=== PATIENT | male | born 1980 | race Caucasian/White ===

== ENCOUNTER 2017-02-13 01:42 | Inpatient (IN) | payer SELFPAY ==
--- NOTE | 2017-02-13 02:03 | ER Document Report ---
ED General - General Chief Complaint: Chest Pain Stated Complaint: CHEST PAIN Time Seen by Provider: 02/13/17 02:02 Notes: Patient is a pleasant 37-year-old male who presents with complaints of chest pain and shortness of breath. This started right after he injected himself with methamphetamine as. He also took a Suboxone strip and smoke marijuana. Even though the symptoms occurred after doing this he says he does not think it is related to the drugs because he has done drugs me times in the past and not had the severe chest pain or shortness of breath. He also had a sensation of blood rushing into his head. Currently does not have a headache. His chest pain is starting to come down. He is very anxious. He does have history of panic attacks but says this feels different. He has no history of coronary disease. No history of cardiomyopathy. He takes no medications on a regular basis. He has no other complaints at this time. TRAVEL OUTSIDE OF THE [place] IN LAST 30 DAYS: No - Related Data Allergies/Adverse Reactions: No Known Allergies Allergy (Verified 05/15/14 06:14) Past Medical History - Social History Smoking Status: Current Some Day Smoker Frequency of alcohol use: Occasional Drug Abuse: Marijuana, Methamphetamine, Prescription drugs Family History: Reviewed & Not Pertinent Past Surgical History: Reports: Hx Orthopedic Surgery - pelvic - Immunizations Immunizations up to date: Yes Hx Diphtheria, Pertussis, Tetanus Vaccination: Yes Review of Systems - Review of Systems Notes: My Normal Review Basic REVIEW OF SYSTEMS: CONSTITUTIONAL : Denies fever, chills, or sweats. Denies recent illness. EENT: Denies eye, ear, throat, or mouth pain or symptoms. Denies nasal or sinus congestion. CARDIOVASCULAR: Had chest pain RESPIRATORY: Difficulty breathing. GASTROINTESTINAL: Denies abdominal pain. Denies nausea, vomiting, or diarrhea. Denies constipation. Last BM: MUSCULOSKELETAL: Denies neck or back pain or joint pain or swelling. SKIN: Denies rash or skin lesions.. NEUROLOGICAL: Denies altered mental status or loss of consciousness. Denies headache. Denies weakness or paralysis or loss of use of either side. Denies problems with gait or speech. Denies sensory or motor loss. ALL OTHER SYSTEMS REVIEWED AND NEGATIVE. Physical Exam - Vital signs Vitals: Resp Pulse Ox 21 H 95 02/13/17 02:08 02/13/17 02:08 - Notes Notes: General Appearance: Well nourished, alert, cooperative, no acute distress, no obvious discomfort. Vitals: reviewed, See vital signs table. Head: no swelling or tenderness to the head Eyes: PERRL, EOMI, Conjuctiva clear Mouth: No decreasd moisture Lungs: No wheezing, No rales, No rhonci, No accessory muscle use, good air exchange bilaterally. Heart: Normal rate, Regular rythm, No murmur, no rub Chest wall pain: No pain to palpation of the chest wall. Abdomen: Normal BS, soft, No rigidity, No abdominal tenderness, No guarding, no rebound, no abdominal masses, no organomegaly Extremities: strength 5/5 in all extremities, good pulses in all extremities, no swelling or tenderness in the extremities, no edema. Skin: warm, dry, appropriate color, no rash Neuro: speech clear, oriented x 3, normal affect, responds appropriately to questions. Course - Re-evaluation Re-evalutation: 02/13/17 04:20 I reevaluate the patient. He is doing some better. He tells me that he still has some chest pain that is pleuritic that is over the left lower portion of his chest. He says he does not feel near as bad as initially was started. He now tells me that his symptoms did not start until 4-5 hours after he injected the drugs. He says that is why he is not sure that this could be related to the joints. Being that she is an IV drug abuser did have sudden onset of chest pain dyspnea 4-5 hours after drug abuse I will obtain a CTA as he is at risk for pulmonary emboli. If this is negative then I suspect this is still probably related to his IV drug abuse and anxiety. 02/13/17 05:54 CTA of the chest is positive for multiple small pulmonary emboli. I will give the patient a dose of Lovenox. His vital signs are stable at this time. I am waiting to hear back from the hospitalist so I can have the patient admitted. 02/13/17 07:34 On exam patient is normotensive and satting around 92% on room air at rest. His heart rate is in the 90s at rest. When he gets up and moves around his oxygen saturation dips down to around 87% and his heart rate goes into the 1 teens. I initially spoke with Dr. Mcnamara who had to leave because he was called to a cardiac arrest on the floor. I then spoke with Dr. Johnson , hospitalist, who agrees to admit the patient. Dictation of this chart was performed using voice recognition software; therefore, there may be some unintended grammatical errors. 02/13/17 07:34 - Vital Signs Vital signs: Temp Pulse Resp BP Pulse Ox 98.5 F 15 125/78 95 02/13/17 07:33 02/13/17 07:15 02/13/17 07:15 02/13/17 07:15 - Laboratory Result Diagrams: 02/13/17 03:13 02/13/17 03:13 Laboratory results interpreted by me: 02/13/17 02/13/17 03:13 03:13 WBC 14.2 H MCV 99 H Seg Neutrophils % 87.2 H Lymphocytes % 7.5 L Absolute Neutrophils 12.4 H BUN 21 H Glucose 113 H - EKG Interpretation by Me Additional EKG results interpreted by me: 02/13/17 02:02 EKG is reviewed and interpreted by me. EKG shows sinus tachycardia with rate of [address] segment elevation or depression. No ischemic T-wave inversions. ID interval, QRS duration, QTc intervals are within normal range. Old EKG for comparison is from May 15, 2014. Discharge - Discharge Clinical Impression: Pulmonary emboli Qualifiers: Pulmonary embolism type: other Chronicity: acute Acute cor pulmonale presence: without acute cor pulmonale Qualified Code(s): I26.99 - Other pulmonary embolism without acute cor pulmonale Condition: Stable
[2017-02-13] MEDS ORDERED: LORAZEPAM INJ 2 MG/1 ML VIAL IV ONE (03:14)
--- NOTE | 2017-02-13 03:20 | RADIOLOGY REPORT (SQ) ---
EXAM DESCRIPTION: CHEST SINGLE VIEW COMPLETED DATE/TIME: 02/13/2017 3:03 am REASON FOR STUDY: chest pain COMPARISON: CR and CT, 05/15/2014. EXAM PARAMETERS: NUMBER OF VIEWS: One view. TECHNIQUE: Single frontal radiographic view of the chest acquired. RADIATION DOSE: NA LIMITATIONS: None. FINDINGS: LUNGS AND PLEURA: No opacities, masses or pneumothorax. No pleural effusion. MEDIASTINUM AND HILAR STRUCTURES: No masses. Contour normal. HEART AND VASCULAR STRUCTURES: Heart normal in size. Normal vasculature. BONES: No acute findings. Mild osteoarthritis of of the left glenohumeral joint HARDWARE: None in the chest. OTHER: No other significant finding. IMPRESSION: NO ACUTE RADIOGRAPHIC FINDING IN THE CHEST. TECHNICAL DOCUMENTATION: JOB ID: [id number]
[2017-02-13 03:29] LABS: ABSOLUTE LYMPHOCYTES (AUTO) 1.1 10^3/uL (0.5-4.7); ABSOLUTE MONOCYTES (AUTO) 0.7 10^3/uL (0.1-1.4); ABSOLUTE NEUT (AUTO) 12.4 10^3/uL (1.7-8.2); BASOPHILS % (AUTO) 0.3 % (0-2); EOSINOPHILS % (AUTO) 0.2 % (0-6); HEMATOCRIT 44.4 % (37.9-51.0); HEMOGLOBIN 14.9 g/dL (13.5-17.0); HGB HCT DIFFERENCE 0.3; LYMPHOCYTES % (AUTO) 7.5 % (13-45); MEAN CORPUSCULAR HEMOGLOBIN 33.3 pg (27.0-33.4); MEAN CORPUSCULAR HGB CONC 33.6 g/dL (32.0-36.0); MEAN CORPUSCULAR VOLUME 99 fl (80-97); MONOCYTES % (AUTO) 4.8 % (3-13); RED BLOOD COUNT 4.49 10^6/uL (4.35-5.55); RED CELL DISTRIBUTION WIDTH 13.1 % (11.5-14.0); SEGMENTED NEUTROPHILS % (AUTO) 87.2 % (42-78); WHITE BLOOD COUNT 14.2 10^3/uL (4.0-10.5)
[2017-02-13 03:39] LABS: ALANINE AMINOTRANSFERASE 32 U/L (21-72); ALBUMIN 4.9 g/dL (3.5-5.0); ALKALINE PHOSPHATASE 88 U/L (38-126); ANION GAP 14 (5-19); ASPARTATE AMINO TRANSFERASE 30 U/L (17-59); BILIRUBIN,DIRECT 0.4 mg/dL (0.0-0.4); BILIRUBIN,TOTAL 0.5 mg/dL (0.2-1.3); BLOOD UREA NITROGEN 21 mg/dL (7-20); CALCIUM 10.2 mg/dL (8.4-10.2); CARBON DIOXIDE 25 mmol/L (22-30); CHLORIDE 101 mmol/L (98-107); CREATINE KINASE 122 U/L (55-170); CREATININE RESULT 0.97 mg/dL (0.52-1.25); GLUCOSE 113 mg/dL (75-110); POTASSIUM 4.4 mmol/L (3.6-5.0); SODIUM 140.1 mmol/L (137-145)
[2017-02-13 03:52] LABS: CREATINE KINASE MB 1.29 ng/mL (<4.55); TROPONIN I < 0.012 ng/mL
[2017-02-13 04:00] LABS: URINE BARBITURATES SCREEN NEGATIVE; URINE METHADONE SCREEN NEGATIVE; URINE OPIATES LOW NEGATIVE; URINE PHENCYCLIDINE SCREEN NEGATIVE
[2017-02-13] MEDS ORDERED: NORMAL SALINE 1000 ML 1,000 ML IV ONE (04:20)
[2017-02-13] MEDS ORDERED: ENOXAPARIN SODIUM INJ 80 MG/0.8 ML DISP.SYRIN SUBCUT SCH ×3 (05:45→22:00)
--- NOTE | 2017-02-13 05:48 | RADIOLOGY REPORT (SQ) ---
EXAM DESCRIPTION: CTA CHEST COMPLETED DATE/TIME: 02/13/2017 5:18 am REASON FOR STUDY: chest pain, tachycardia COMPARISON: None. TECHNIQUE: CT scan of the chest performed using helical scanning technique with dynamic intravenous contrast injection. Images reviewed with lung, soft tissue and bone windows. Reconstructed coronal and sagittal MPR images reviewed. Additional 3 dimensional post-processing performed to develop Maximal Intensity Projection images (MS P). All images stored on PACS. All CT scanners at this facility use dose modulation, iterative reconstruction, and/or weight based d osing when appropriate to reduce radiation dose to as low as reasonably achievable (ALARA). [facility]: Dose Right [facility]: CareDose [facility]: Dose Right [facility]: Teradose 4D [facility]: Riidr CONTRAST TYPE AND DOSE: contrast/concentration: Isovue 370.00 mg/ml; Total Contrast Delivered: 100.0 ml; Total Saline Delivered: 65.0 ml RENAL FUNCTION: None required. The patient is less than 50 years old. RADIATION DOSE: Up-to-date CT equipment and radiation dose reduction techniques were employed. CTDIv ol: 17.2 mGy. DLP: 609 mGy-cm. . LIMITATIONS: None. FINDINGS: LUNGS AND PLEURA: No masses, infiltrates, pneumothorax. No pleural effusions, calcificati ons. AORTA AND GREAT VESSELS: No aneurysm or dissection. HEART: No pericardial effusion. Moderate right ventricular strain. PULMONARY ARTERIES: Scattered pulmonary emboli with lower lobe predominance in tertiary pulmonary art erial vessels with the largest in the right interlobar artery, near occlusive and elongated. HILAR AND MEDIASTINAL STRUCTURES: No identified masses or abnormal nodes. HARDWARE: None in the chest. UPPER ABDOMEN: 5.6 cm likely benign partially imaged cyst of the right kidney. Limited exam. THYROID AND OTHER SOFT TISSUES: No masses. No adenopathy. BONES: No acute or significant finding. 3D MIPS: Confirm above findings. OTHER: No other significant finding. IMPRESSION: Bilateral pulmonary emboli. COMMENT: This report was called to NELLA PEREZ DO at05:39 on 02/13/2017. TECHNICAL DOCUMENTATION: JOB ID: [id number] Quality ID # [id number]: Final reports with documentation of one or more dose reduction techniques (e.g., Au tomated exposure control, adjustment of the mA and/or kV according to patient size, use of iterative reconstruction technique) 2010 [employer]- All Rights Reserved
[2017-02-13] MEDS ORDERED: ENOXAPARIN SODIUM INJ 80 MG/0.8 ML DISP.SYRIN SUBCUT ONE (06:30)
[2017-02-13 06:55] LABS: PARTIAL THROMBOPLASTIN TIME 31.4 SEC (23.5-35.8)
[2017-02-13] MEDS ORDERED: ONDANSETRON HCL INJ/PF 4 MG/2 ML SDV IV PRN (08:02)
[2017-02-13] MEDS ORDERED: ACETAMINOPHEN 325 MG TABLET PO PRN (08:02)
[2017-02-13] MEDS ORDERED: MAG HYDROX/AL HYDROX/SIMETH SUSP 30 ML UDCUP PO PRN (08:02)
[2017-02-13] MEDS ORDERED: LORAZEPAM 1 MG TABLET PO PRN (08:05)
[2017-02-13] MEDS ORDERED: VANCOMYCIN HCL 0 MG in DEXTROSE 5%-WATER 250 ML IV NR (08:15)
[2017-02-13] MEDS ORDERED: GENTAMICIN SULFATE 0 MG in DEXTROSE 5%-WATER 100 ML IV NR (08:15)
[2017-02-13] MEDS ORDERED: VANCOMYCIN HCL 1,000 MG in DEXTROSE 5%-WATER 250 ML IV ONE (09:00)
--- NOTE | 2017-02-13 09:22 | HISTORY AND PHYSICAL E ---
History and Physical NAME: MAANUEL COATES : 1980 AGE: 37Y ADMITTED: 02/13/2017 ROOM: ED07 CHIEF COMPLAINT: Shortness of breath. HISTORY OF PRESENT ILLNESS: The patient is a 37-year-old male with no known past medical history who presented to the emergency department approximately 6 hours after injecting methamphetamine, using Suboxone and marijuana with chest pain and shortness of breath. He reports that he was having sharp substernal chest pain that radiated through to his back associated with lightheadedness and weakness. Patient reports that he has had some questionable fever or chills but he felt very flushed during the occurrence of this. Patient does report a prior history about 15 years ago of heroin abuse. In the emergency department, a CTA was obtained which revealed bilateral pulmonary emboli with moderate right ventricular strain and scattered pulmonary emboli with a lower lobe predominance in tertiary pulmonary arterial vessels with the largest in the right internal lobar artery, near occlusive and elongated. He is referred to the hospitalist service for admission. PAST MEDICAL HISTORY: None. PAST SURGICAL HISTORY: He reports metal plates in his pelvis and jaw. SOCIAL HISTORY: Patient has been smoking for about 3 weeks, less than a pack per day. Denies alcohol use. Admits to marijuana, Suboxone, methamphetamine, and a prior history of IV heroin abuse. FAMILY HISTORY: He reports that his parents are healthy to the best of his knowledge. One of his grandfathers of a CVA and his uncle suddenly approximately 2 months ago from cause unknown. MEDICATIONS: Patient takes no medications. ALLERGIES: He has no known drug allergies. PRIMARY CARE PHYSICIAN: He has none. CODE STATUS: He is a FULL CODE. His grandfather, Zeferino De Jesus, is his surrogate decision maker. REVIEW OF SYSTEMS: CONSTITUTIONAL: He admits to fever and chills. Denies weight loss, weight gain, anorexia. HEENT: Denies visual disturbance, headache, hearing loss. RESPIRATORY: Admits to dyspnea. Denies cough or hemoptysis. Admits to pleurisy. CARDIAC: He admits to chest pain. Denies PND, orthopnea, or edema. ABDOMEN: Denies abdominal pain, nausea, vomiting, diarrhea, constipation, hematemesis, melena, or hematochezia. GENITOURINARY: Denies dysuria, urgency, frequency, or hematuria. SKIN: Denies rash or wounds. MUSCULOSKELETAL: Denies joint pain or swelling or leg swelling. NEUROLOGIC: Denies weakness, numbness, dizziness, dysphasia, dysarthria, or ataxia. ENDOCRINE: Denies polydipsia, polyuria, hot or cold intolerance. PSYCHIATRIC: Denies depression, anxiety, hallucinations, or delusions. HEMATOLOGIC: Denies easy bleeding or bruising. PHYSICAL EXAMINATION: VITAL SIGNS: Temperature 98.5, pulse 86, blood pressure 125/78, respiratory rate 15, saturation 95% on room air. GENERAL: The patient is a well fed, well nourished, male who is in no acute respiratory distress. He appears well. HEENT: He is normocephalic. He has no scleral icterus. He is conjunctivae are clear. His extraocular eye movements are intact. His pupils are mydriatic at 6 mm, equal, round, and reactive to light and accommodation. His mucosa is slightly dry. NECK: His neck is supple. His trachea is midline. He has no thyromegaly. RESPIRATORY: Clear to auscultation bilaterally without wheezes, rhonchi, or rales. CARDIOVASCULAR: Regular rate and rhythm without appreciable murmur, rub, or gallop. ABDOMEN: Soft, nontender to palpation, and nondistended with active bowel sounds. He has a negative Leon's sign. He has no rebound, rigidity, or guarding. RECTAL: Deferred. GENITOURINARY: Deferred. EXTREMITIES: Reveal no cyanosis, clubbing, or edema. He has no lower extremity swelling. MUSCULOSKELETAL: Reveals no joint swelling or deformity. VASCULAR: Reveals normal peripheral pulses. NEUROLOGIC: He is awake, alert, and oriented to person, place, and time. His speech is normal. Cranial nerves are grossly intact. His strength is equal in his upper and lower extremities 5/5. His tactile sensation is present in all extremities. SKIN: Reveals no rashes, wounds, or worrisome skin lesions. PSYCHIATRIC: Patient is anxious. He has a normal affect. LABORATORY VALUES: White count of 14.2, hemoglobin of 14.9, hematocrit of 44.4, MCV of 99, and platelets of 241 with segmented neutrophils of 87.2. INR of 0.92. Sodium of 140, potassium 4.4, chloride of 101, CO2 of 25, BUN of 21, creatinine of 0.97, glucose of 113, calcium of 10.2, total bili of 0.5, direct of 0.4, AST of 30, ALT of 32, alk phos of 88, CK of 122 and MB of 1.29. Troponin of less than 0.012. Total protein of 8 and an albumin of 4.9. Toxicology reveals amphetamines and marijuana. Patient's EKG reveals sinus tachycardia with Q3, T3 morphology but no ST segment changes. QTC is 461. Chest x-ray reveals no acute findings. CTA of the chest and abdomen revealed as above the bilateral pulmonary emboli. IMPRESSION AND PLAN: 1. This is a 37-year-old male with possible septic thrombo emboli. We will obtain blood cultures and place patient on gentamicin, nafcillin, and vancomycin. Patient has already received Lovenox in the emergency department, weight based, and we will contact [facility] to attempt to transfer this patient for ELIAS. In the meantime, we will obtain a transthoracic echo and bilateral lower extremity Doppler. It is unclear the etiology of this, but my strong suspicion is that this is actually embolus secondary to foreign body and/or septic thrombo emboli as opposed to thrombosis. Patient has no recent immobilization, no recent travel, no recent lower extremity swelling, and a recent use of IV drugs. 2. For patient's IV drug abuse/polysubstance abuse, we will place patient on Ativan 1 mg p.o. q.6 p.r.n. anxiety and we will treat any opiate withdrawal with clonidine. 3. For patient's DVT prophylaxis, he has already received dose Lovenox and will place patient on HAMILTON hose. 4. For his code status, he wishes to be a FULL CODE. His grandfather is his surrogate decision maker. Total time spent with patient including physical examination, coordination of care, and discussion with patient and the emergency department physician was 60 minutes of time. DICTATING PHYSICIAN: ARABELLA PANTOJA M.D. [id number] PHY#: [id number] ID: [id number] JOB#: [id number] ACCT: [id number] cc:ARABELLA PANTOJA M.D. >
[2017-02-13] MEDS ORDERED: NAFCILLIN SODIUM 2 GM in DEXTROSE 5%-WATER 100 ML IV SCH (10:00)
[2017-02-13 10:35] LABS: CREATINE KINASE MB 1.39 ng/mL (<4.55)
--- NOTE | 2017-02-13 10:37 | XCELERA REPORT ---
[address] [address] Lower Extremity Venous Evaluation Name: AMANUEL COATES Age: 37 yrs Gender: Male : 1980 Patient Status: Inpatient Patient Location: [place] [address]^A Study Date: 02/13/2017 09:42 AM Procedure: Color flow and duplex imaging bilaterally of the veins of the lower extremities as well as the Common Femoral veins. Reason For Study: new Ordering Physician: ARABELLA PANTOJA Performed By: Shea Holguin Right Sided Venous Evaluation Normal vessel filling wall to wall, compression and augmentation as well as Colour flow down to the infrageniculate veins. Left Sided Venous Evaluation Abnormal vessel filling wall to wall, no compression or Colour flow in the Popliteal vein. Critical Findings Called in to Dr Johnson at 1030. Interpretation Summary Positive for acute DVT in the left Popliteal vein,. : ARABELLA PANTOJA > Enrrique Virgen
[2017-02-13 10:39] LABS: TROPONIN I < 0.012 ng/mL
[2017-02-13] MEDS: NORMAL SALINE 1000 ML 1,000 ML IV PRN ×2 (11:57→19:52)
[2017-02-13] MEDS: FAMOTIDINE 20 MG TABLET PO SCH ×2 (12:03→21:29)
--- NOTE | 2017-02-13 12:19 | EKG REPORT ---
SEVERITY:- BORDERLINE ECG - SINUS TACHYCARDIA BORDERLINE T WAVE ABNORMALITIES : Confirmed by: Hortensia Lopes MD 13-Feb-2017 12:19:15
--- NOTE | 2017-02-13 13:21 | XCELERA REPORT ---
[address] [address] Transthoracic Echocardiogram Report Name: AMANUEL COATES Age: 37 yrs Gender: Male : 1980 Patient Status: Inpatient Patient Location: [place] [address]^A Study Date: 02/13/2017 09:25 AM Height: 70 in Weight: 170 lb BSA: 1.9 m2 Procedure: A complete two-dimensional transthoracic echocardiogram was performed (2D, M-mode, spectral and color flow Doppler). The study was technically adequate with some images being suboptimal in quality. Reason For Study: benigno rios pe Ordering Physician: ARABELLA PANTOJA Performed By: Shea Holguin Interpretation Summary The left ventricular ejection fraction is normal. There is normal left ventricular wall thickness. The left ventricle is grossly normal size. Doppler measurements suggest normal left ventricular diastolic function Wall motion cannot be accurately commented on, but no definite regional wall motion abnormalities noted. The right ventricular systolic function is normal. Borderline right atrial enlargement. Borderline left atrial enlargement. Interarterial septum not well visualized and not well dopplered. Cannot comment on ASD/PFO presence. There is no mitral valve stenosis. There is a trace amount of mitral regurgitation There is no aortic valve stenosis No aortic regurgitation is present. There is a trace or physiologic amount of tricuspid regurgitation Tricuspid regurgitation jet envelope not well defined to measure RV systolic pressure accurately. The aortic root is not well visualized but is probably normal size. The inferior vena cava appeared normal and decreased > 50% with respiration (RAP 5-10 mmHg) There is no pericardial effusion. MMode/2D Measurements & Calculations RVDd: 3.3 cm LVIDd: 5.8 cm FS: 44.4 % Ao root diam: 3.6 cm IVSd: 0.78 cm LVIDs: 3.2 cm EDV(Teich): 163.4 ml LVPWd: 0.84 cm ESV(Teich): 41.0 ml Ao root area: 10.4 cm2 EF(Teich): 74.9 % LVOT diam: 2.5 cm LVOT area: 5.0 cm2 Doppler Measurements & Calculations MV E max destiney: MV dec slope: Ao V2 max: LV V1 max P.2 cm/sec 574.8 cm/sec2 135.4 cm/sec 5.8 mmHg MV A max destiney: MV dec time: Ao max PG: LV V1 max: 64.8 cm/sec 0.15 sec 7.3 mmHg 120.1 cm/sec MV E/A: 1.3 LILIANA(V,D): 4.5 cm2 PA V2 max: 109.9 cm/sec PA max P.8 mmHg Left Ventricle The left ventricle is grossly normal size. There is normal left ventricular wall thickness. The left ventricular ejection fraction is normal. Doppler measurements suggest normal left ventricular diastolic function. Wall motion cannot be accurately commented on, but no definite regional wall motion abnormalities noted. Right Ventricle The right ventricle is mildly dilated. The right ventricle appears to be hypertrophied. The right ventricular systolic function is normal. Atria Borderline right atrial enlargement. Borderline left atrial enlargement. Interarterial septum not well visualized and not well dopplered. Cannot comment on ASD/PFO presence. Mitral Valve The mitral valve is grossly normal. There is no mitral valve stenosis. There is a trace amount of mitral regurgitation. Aortic Valve The aortic valve is grossly normal. There is no aortic valve stenosis. No aortic regurgitation is present. Tricuspid Valve The tricuspid valve is not well visualized secondary to technical limitations. There is no tricuspid stenosis. There is a trace or physiologic amount of tricuspid regurgitation. Tricuspid regurgitation jet envelope not well defined to measure RV systolic pressure accurately. Pulmonic Valve The pulmonic valve is not well visualized. Great Vessels The aortic root is not well visualized but is probably normal size. The inferior vena cava appeared normal and decreased > 50% with respiration (RAP 5-10 mmHg). Effusions There is no pericardial effusion. : ARABELLA PANTOJA > Nate Dolan
[2017-02-13] MEDS ORDERED: GENTAMICIN SULFATE 100 MG in DEXTROSE 5%-WATER 100.0 ML IV SCH (14:00)
[2017-02-13 15:04] LABS: CREATINE KINASE MB 1.29 ng/mL (<4.55)
[2017-02-13 15:10] LABS: TROPONIN I < 0.012 ng/mL
[2017-02-13] MEDS ORDERED: VANCOMYCIN HCL 1,000 MG in DEXTROSE 5%-WATER 250 ML IV SCH (18:00)
[2017-02-13 20:47] LABS: CREATINE KINASE MB 1.03 ng/mL (<4.55)
[2017-02-13 20:48] LABS: TROPONIN I < 0.012 ng/mL
[2017-02-14] MEDS: NORMAL SALINE 1000 ML 1,000 ML IV PRN (04:21)
[2017-02-14 05:12] LABS: HEMATOCRIT 39.7 % (37.9-51.0); HEMOGLOBIN 13.6 g/dL (13.5-17.0); HGB HCT DIFFERENCE 1.1; MEAN CORPUSCULAR HEMOGLOBIN 34.1 pg (27.0-33.4); MEAN CORPUSCULAR HGB CONC 34.3 g/dL (32.0-36.0); MEAN CORPUSCULAR VOLUME 100 fl (80-97); RED BLOOD COUNT 3.99 10^6/uL (4.35-5.55); RED CELL DISTRIBUTION WIDTH 13.1 % (11.5-14.0); WHITE BLOOD COUNT 8.6 10^3/uL (4.0-10.5)
[2017-02-14 05:30] LABS: ANION GAP 6 (5-19); BLOOD UREA NITROGEN 17 mg/dL (7-20); CALCIUM 8.7 mg/dL (8.4-10.2); CARBON DIOXIDE 29 mmol/L (22-30); CHLORIDE 108 mmol/L (98-107); CREATININE RESULT 0.94 mg/dL (0.52-1.25); GLUCOSE 89 mg/dL (75-110); MAGNESIUM 2.2 mg/dL (1.6-2.3); POTASSIUM 4.4 mmol/L (3.6-5.0); SODIUM 143.1 mmol/L (137-145)
[2017-02-14] MEDS ORDERED: RIVAROXABAN 15 MG TABLET PO ONE (09:00)
[2017-02-14] MEDS: FAMOTIDINE 20 MG TABLET PO SCH (09:05)
[2017-02-14 10:49] VITALS: BP 121/70
[2017-02-14] MEDS ORDERED: RIVAROXABAN 15 MG TABLET PO SCH (17:00)
--- NOTE | 2017-02-15 08:11 | PDOC DISCHARGE SUMMARY ---
General - Admit/Disc Date/PCP Admission Date/Primary Care Provider: 02/13/17 08:02 Discharge Date: 02/14/17 - Discharge Diagnosis (1) IV drug abuse Is this a current diagnosis for this admission?: Yes (2) acute amphetamine intoxication Is this a current diagnosis for this admission?: Yes (3) DVT (deep venous thrombosis) Is this a current diagnosis for this admission?: Yes (4) Tobacco abuse Is this a current diagnosis for this admission?: Yes (5) Polysubstance dependence including opioid type drug, episodic abuse Is this a current diagnosis for this admission?: Yes (6) Pulmonary emboli Is this a current diagnosis for this admission?: Yes - Additional Information Discharge Diet: Regular Discharge Activity: Activity As Tolerated Home Medications: Rivaroxaban [Xarelto 15 mg Tablet] 15 mg PO BIDBS #42 tablet 02/14/17 History of Present Illness History of Present Illness: Please see H&P for full HPI Hospital Course Hospital Course: Patient is a 37-year-old male who presented to the emergency department within 6 hours of injecting methamphetamines. Patient complained of shortness of breath and chest pain. CT performed in the emergency department revealed bilateral pulmonary emboli. Patient was initially treated with Lovenox and while initially started on antibiotics for concern for septic thromboemboli due to injection, patient was found to have a left lower extremity popliteal DVT. Patient does not recall any injury and there is no family history of clotting disorder or malignancy. Patient was transitioned from Lovenox to Xarelto and given free 30 day coupon. [facility] and with hematology for further laboratory evaluation. Patient did not require oxygen and was stable. Patient was strongly advised against doing drugs that are not prescribed to him and strongly advised to not inject any drugs. Patient was also advised to have proper documentation of his use of a blood thinner. Patient was advised of increased risk associated with Xarelto over Coumadin. Patient reports understanding and all questions were answered to the best of my ability. Patient was discharged in stable condition Physical Exam Vital Signs: Temp Pulse Resp BP Pulse Ox 98.0 F 53 L 16 121/70 97 02/14/17 10:47 02/14/17 10:47 02/14/17 10:47 02/14/17 10:47 02/14/17 10:47 Intake & Output 02/13/17 02/14/17 02/15/17 06:59 06:59 06:59 Intake Total 2972 Balance 2972 Weight 76.5 kg Exam: General: Awake alert and oriented x3, no acute respiratory distress HEENT: AT/NC, PERRL, EOMI, oropharynx is moist, pink, no scleral icterus, no conjunctival injection Neck: No JVD, trachea midline Chest: Clear to auscultation bilaterally, no wheezes rhonchi or rales CV: Regular rate and rhythm, normal S1 and S2, no murmur, rub, or gallop Abdomen: Soft, nontender to palpation, nondistended, active bowel sounds; no rebound, rigidity, or guarding Extremities: No cyanosis, clubbing or edema Neuro: Cranial nerves II through XII are grossly intact without focal deficits; awake alert and oriented x3 Psych: Normal mood and affect Results Laboratory Results: 02/14/17 04:33 02/14/17 04:33 02/14/17 02/14/17 04:33 04:33 WBC 8.6 RBC 3.99 L Hgb 13.6 Hct 39.7 MCV 100 H MCH 34.1 H MCHC 34.3 RDW 13.1 Plt Count 211 Sodium 143.1 Potassium 4.4 Chloride 108 H Carbon Dioxide 29 Anion Gap 6 BUN 17 Creatinine 0.94 Est GFR ( Amer) > 60 Est GFR (Non-Af Amer) > 60 Glucose 89 Calcium 8.7 Magnesium 2.2 02/13/17 02/13/17 02/13/17 09:23 09:23 14:11 Creatine Kinase 121 128 CK-MB (CK-2) 1.39 Troponin I < 0.012 02/13/17 02/13/17 02/13/17 14:11 20:10 20:10 Creatine Kinase 111 CK-MB (CK-2) 1.29 1.03 Troponin I < 0.012 < 0.012 Impressions: Chest X-Ray 02/13/17 02:09 IMPRESSION: NO ACUTE RADIOGRAPHIC FINDING IN THE CHEST. Chest/Abdomen CTA 02/13/17 04:19 IMPRESSION: Bilateral pulmonary emboli. Qualifiers PATEINT BEING DISCHARGED WITH ANY OF THE FOLLOWING DIAGNOSIS?: VTE (PE or DVT) VTE patient discharged on overlapping Therapy?: No Reason(s) for not prescribing Overlap Therapy:: Not indicated - On Xarelto Plan Time Spent: Less than 30 Minutes
== END 2017-02-14 11:25 | disposition home or self-care (01) | DRG 299 ==
LOC: ER 01:42 → 3W 08:02 → UNDOADMIN 08:26 → EH 08:26 → 3W 10:10 → EH 10:10
PROVIDERS: ADMIT Family Medicine; ATTEND Family Medicine
DX: I82.432 Acute embolism and thrombosis of left popliteal vein (principal); I26.99 Other pulmonary embolism without acute cor pulmonale; F15.929 Other stimulant use, unspecified with intoxication, unspecified; F12.10 Cannabis abuse, uncomplicated; F17.200 Nicotine dependence, unspecified, uncomplicated; F19.10 Other psychoactive substance abuse, uncomplicated
CPT/HCPCS: 36415; 71010; 71275; 80048; 80053; 80202; 80307; 82550; 82553; 83735; 84484; 85025; 85027; 85379; 85610; 85730; 87040; 93005; 93010; 93306; 93970; 96361; 96374; 96375; 99285; J1650; J2060; J3370; J7030; J7060

== ENCOUNTER 2017-03-18 02:46 | Emergency (ER) | payer SELFPAY ==
[2017-03-18] MEDS ORDERED: ASPIRIN 81 MG TABLET, CHEWABLE PO ONE (02:59)
[2017-03-18] MEDS ORDERED: RIVAROXABAN 10 MG TABLET PO ONE (03:12)
[2017-03-18 03:19] LABS: HEMATOCRIT 41.5 % (37.9-51.0); HEMOGLOBIN 14.4 g/dL (13.5-17.0); HGB HCT DIFFERENCE 1.7; MEAN CORPUSCULAR HGB CONC 34.7 g/dL (32.0-36.0); MEAN CORPUSCULAR VOLUME 98 fl (80-97); RED BLOOD COUNT 4.23 10^6/uL (4.35-5.55); RED CELL DISTRIBUTION WIDTH 13.1 % (11.5-14.0); WHITE BLOOD COUNT 12.5 10^3/uL (4.0-10.5)
--- NOTE | 2017-03-18 03:26 | ER Document Report ---
ED Cardiac - General Chief Complaint: Chest Pain Stated Complaint: CHEST PAIN Time Seen by Provider: 03/18/17 03:11 Notes: The patient is a 37-year-old male, past medical history PE diagnosed 1 month ago , methamphetamine abuse, presents with 1 hour of left chest tightness that resolved without any intervention. He was admitted 1 month ago and finished his free 30 days of Xarelto, but he has not followed up with the [facility] as instructed for further treatment. His last dose of Xarelto was 5 days ago. Patient denies hemoptysis, syncope, fevers, nausea, vomiting, numbness or tingling. TRAVEL OUTSIDE OF THE [place] IN LAST 30 DAYS: No - Related Data Allergies/Adverse Reactions: No Known Allergies Allergy (Verified 03/18/17 02:56) Past Medical History - General Information source: Patient - Social History Smoking Status: Current Every Day Smoker Drug Abuse: Methamphetamine Family History: Reviewed & Not Pertinent Renal/ Medical History: Denies: Hx Peritoneal Dialysis Psychiatric Medical History: Reports: Hx Depression - ALSO ANXIETY Past Surgical History: Reports: Hx Orthopedic Surgery - pelvic - Immunizations Immunizations up to date: Yes Hx Diphtheria, Pertussis, Tetanus Vaccination: Yes Review of Systems - Review of Systems Notes: REVIEW OF SYSTEMS: CONSTITUTIONAL: -fevers, -chills EENT: -eye pain, -difficulty swallowing, -nasal congestion CARDIOVASCULAR: +chest pain, -syncope. RESPIRATORY: -cough, +SOB GASTROINTESTINAL: -abdominal pain, -nausea, -vomiting, -diarrhea GENITOURINARY: -dysuria, -hematuria MUSCULOSKELETAL: -back pain, -neck pain SKIN: -rash or skin lesions. HEMATOLOGIC: -easy bruising or bleeding. LYMPHATIC: -swollen, enlarged glands. NEUROLOGICAL: -altered mental status or loss of consciousness, -headache, - neurologic symptoms PSYCHIATRIC: -anxiety, -depression, +meth use ALL OTHER SYSTEMS REVIEWED AND NEGATIVE. Physical Exam - Vital signs Vitals: Temp Pulse Resp BP Pulse Ox 98.7 F 111 H 20 156/93 H 95 03/18/17 02:56 03/18/17 02:56 10 02:56 03/18/17 02:56 03/18/17 02:56 - Notes Notes: PHYSICAL EXAMINATION: GENERAL: Well-appearing, well-nourished and in no acute distress. HEAD: Atraumatic, normocephalic. EYES: Pupils equal round and reactive to light, extraocular movements intact, sclera anicteric, conjunctiva are normal. ENT: nares patent, oropharynx clear without exudates. Moist mucous membranes. NECK: Normal range of motion, supple without lymphadenopathy LUNGS: Breath sounds clear to auscultation bilaterally and equal. No wheezes rales or rhonchi. HEART: Tachycardia, regular rhythm ABDOMEN: Soft, nontender, normoactive bowel sounds. No guarding, no rebound. No masses appreciated. EXTREMITIES: Normal range of motion, no pitting or edema. No cyanosis. NEUROLOGICAL: Cranial nerves grossly intact. Normal speech, normal gait. Normal sensory and motor exams. PSYCH: Normal mood, normal affect. SKIN: Warm, Dry, normal turgor, no rashes or lesions noted. Course - Re-evaluation Re-evalutation: Patient has a known PE, but has been off his Xarelto for the past 4 days after finishing 1 month of Xarelto. He was given follow-up at the [facility], but patient said that he did not call for an appointment yet. Instructed him that he must follow-up for further treatment of his PE due to the serious nature of his disease. He said that he will call tomorrow morning. Provided patient with 30 days of Xarelto for this month. His EKG and troponin did not show any signs of active ischemia and his chest x-ray is unremarkable. Patient also has a leukocytosis, which he has had in the past, but there are no signs of infection or fever at this time. - Vital Signs Vital signs: Temp Pulse Resp BP Pulse Ox 98.7 F 111 H 20 167/96 H 99 03/18/17 02:56 03/18/17 02:56 03/18/17 03:05 03/18/17 03:05 03/18/17 03:18 - Laboratory Result Diagrams: 03/18/17 03:10 03/18/17 03:10 Laboratory results interpreted by me: 03/18/17 03/18/17 03:10 03:10 WBC 12.5 H RBC 4.23 L MCV 98 H MCH 34.0 H Seg Neuts % (Manual) 41 L Eosinophils % (Manual) 8 H Abs Lymphs (Manual) 5.8 H Absolute Eos (Manual) 1.0 H BUN 24 H Glucose 202 H - Diagnostic Test Radiology reviewed: Image reviewed, Reports reviewed Radiology results interpreted by me: CXR: NAD - EKG Interpretation by Me EKG shows normal: Sinus rhythm, Albin, Intervals, QRS Complexes, ST-T Waves Rate: Tachycardia When compared to previous EKG there are: No significant change Discharge - Discharge Clinical Impression: Chest pain Qualifiers: Chest pain type: unspecified Qualified Code(s): R07.9 - Chest pain, unspecified Pulmonary embolism Qualifiers: Pulmonary embolism type: other Chronicity: acute Acute cor pulmonale presence: without acute cor pulmonale Qualified Code(s): I26.99 - Other pulmonary embolism without acute cor pulmonale Condition: Stable Additional Instructions: You must take your Xarelto as prescribed and you must follow-up with the [facility] for further treatment of your blood clots in your lungs. You were given a coupon for Xarelto today. Stop using drugs. Return if you have worsening pain, worsening shortness of breath or any other concerns. CHEST PAIN OF UNCLEAR CAUSE: The exact cause of your chest pain isn't clear. Fortunately, there is no evidence of a dangerous medical condition. Further testing may be required to find the source of the pain. Most often, we find that this pain is coming from the chest wall -- the muscles or rib joints in the chest. But chest pain can come from the lung and lung lining, the esophagus, the heart valves or heart lining, and even the stomach or gallbladder. Rest. Eat lightly until the pain is gone. We may prescribe medicine for pain and inflammation. You should call the physician immediately if the pain radiates to the shoulder, jaw or arms; if you start to run a fever or develop a cough; or if you develop shortness of breath, or other new or alarming symptoms. NORMAL EXAM AND WORKUP: At this time, your examination and workup show no significant abnormality. No significant abnormal physical findings were noted. All laboratory, EKG, and imaging (x-ray, CT scans, ultrasound) studies that were ordered show no significant abnormality. Although your examination and all studies that were ordered showed no significant abnormal finding, there are no examinations and no studies that are 100% accurate. There is always the possibility that some abnormality could exist and not be detected with physical examination or within the limits and capabilities of laboratory and other studies. You should return or follow up as you were instructed on your visit today for further evaluation if your symptoms do not resolve. FOLLOW-UP CARE: If you have been referred to a physician for follow-up care, call the physician s office for an appointment as you were instructed or within the next two days. If you experience worsening or a significant change in your symptoms, notify the physician immediately or return to the Emergency Department at any time for re-evaluation. Prescriptions: Rivaroxaban [Xarelto] 20 mg PO DAILY #30 tablet Forms: Elevated Blood Pressure Referrals: [facility] [Outside] - Follow up as needed [facility] [Outside] - Follow up as needed
[2017-03-18 03:36] LABS: BASOPHILS % (MANUAL) 0 % (0-2); EOSINOPHILS % (MANUAL) 8 % (0-6); LYMPHOCYTES % (MANUAL) 42 % (13-45); TOTAL CELLS COUNTED 100
[2017-03-18 03:39] LABS: ALANINE AMINOTRANSFERASE 41 U/L (21-72); ALBUMIN 4.3 g/dL (3.5-5.0); ALKALINE PHOSPHATASE 77 U/L (38-126); ANION GAP 9 (5-19); ASPARTATE AMINO TRANSFERASE 26 U/L (17-59); BILIRUBIN,DIRECT 0.3 mg/dL (0.0-0.4); BILIRUBIN,TOTAL 0.3 mg/dL (0.2-1.3); BLOOD UREA NITROGEN 24 mg/dL (7-20); CALCIUM 9.2 mg/dL (8.4-10.2); CARBON DIOXIDE 26 mmol/L (22-30); CHLORIDE 107 mmol/L (98-107); CREATINE KINASE 158 U/L (55-170); CREATININE RESULT 1.02 mg/dL (0.52-1.25); GLUCOSE 202 mg/dL (75-110); POIKILOCYTOSIS SLIGHT; POTASSIUM 3.8 mmol/L (3.6-5.0); SODIUM 141.9 mmol/L (137-145); TOTAL PROTEIN 6.9 g/dL (6.3-8.2)
[2017-03-18] MEDS ORDERED: RIVAROXABAN 10 MG TABLET ONE (03:39)
[2017-03-18 03:40] LABS: PLATELET CLUMPS PRESENT
--- NOTE | 2017-03-18 04:54 | RADIOLOGY REPORT (SQ) ---
EXAM DESCRIPTION: CHEST SINGLE VIEW COMPLETED DATE/TIME: 03/18/2017 4:39 am REASON FOR STUDY: cp COMPARISON: Chest x-ray 02/13/2017. EXAM PARAMETERS: NUMBER OF VIEWS: One view. TECHNIQUE: 2 frontal radiographic views of the chest acquired. RADIATION DOSE: NA LIMITATIONS: None. FINDINGS: LUNGS AND PLEURA: No consolidation, pneumothorax or pleural effusion. MEDIASTINUM AND HILAR STRUCTURES: No masses. Contour normal. HEART AND VASCULAR STRUCTURES: Heart normal in size. Normal vasculature. BONES: No acute findings. HARDWARE: None in the chest. IMPRESSION: No acute radiographic finding in the chest. TECHNICAL DOCUMENTATION: JOB ID: [id number]
[2017-03-18 05:53] VITALS: BP 104/66
--- NOTE | 2017-03-18 13:01 | EKG REPORT ---
SEVERITY:- BORDERLINE ECG - SINUS TACHYCARDIA BORDERLINE PROLONGED QT INTERVAL : Confirmed by: Nate Dolan 18-Mar-2017 13:01:15
== END 2017-03-18 05:53 | disposition home or self-care (01) ==
LOC: ER 02:46
DX: I26.99 Other pulmonary embolism without acute cor pulmonale (principal); R07.9 Chest pain, unspecified; Z86.711 Personal history of pulmonary embolism
CPT/HCPCS: 36415; 71010; 80053; 82550; 84484; 85025; 93005; 93010; 99285

== ENCOUNTER 2017-03-23 06:12 | Emergency (ER) | payer SELFPAY ==
[2017-03-23 07:10] LABS: APPEARANCE,URINE CLEAR; BILIRUBIN,URINE NEGATIVE (NEGATIVE); GLUCOSE, URINE NEGATIVE (NEGATIVE); KETONES,URINE NEGATIVE (NEGATIVE); LEUKOCYTE ESTERASE,URINE NEGATIVE (NEGATIVE); NITRITE,URINE NEGATIVE (NEGATIVE); PROTEIN,URINE NEGATIVE (NEGATIVE); URINE SPECIFIC GRAVITY 1.003; UROBILINOGEN,URINE NEGATIVE mg/dL (<2.0)
[2017-03-23 07:19] LABS: ABSOLUTE EOSINOPHILS # (AUTO) 0.2 10^3/uL (0.0-0.6); ABSOLUTE LYMPHOCYTES (AUTO) 1.5 10^3/uL (0.5-4.7); ABSOLUTE MONOCYTES (AUTO) 0.6 10^3/uL (0.1-1.4); ABSOLUTE NEUT (AUTO) 7.1 10^3/uL (1.7-8.2); BASOPHILS % (AUTO) 0.4 % (0-2); EOSINOPHILS % (AUTO) 1.7 % (0-6); HEMOGLOBIN 15.3 g/dL (13.5-17.0); HGB HCT DIFFERENCE 1.9; LYMPHOCYTES % (AUTO) 16.2 % (13-45); MEAN CORPUSCULAR HEMOGLOBIN 33.5 pg (27.0-33.4); MEAN CORPUSCULAR HGB CONC 34.9 g/dL (32.0-36.0); MEAN CORPUSCULAR VOLUME 96 fl (80-97); MONOCYTES % (AUTO) 6.7 % (3-13); RED BLOOD COUNT 4.58 10^6/uL (4.35-5.55); RED CELL DISTRIBUTION WIDTH 13.1 % (11.5-14.0); WHITE BLOOD COUNT 9.4 10^3/uL (4.0-10.5)
--- NOTE | 2017-03-23 07:33 | ER Document Report ---
ED Respiratory Problem - General Mode of Arrival: Ambulatory Information source: Patient TRAVEL OUTSIDE OF THE [place] IN LAST 30 DAYS: No - HPI Patient complains to provider of: Short of breath Associated symptoms: Chest pain/discomfort <BABS HEDRICK - Last Filed: 03/23/17 08:00> <RAUDEL MOODY - Last Filed: 03/23/17 08:36> - General Chief Complaint: Chest Pain Stated Complaint: CHEST PAIN Time Seen by Provider: 03/23/17 06:51 Notes: Patient is a 37-year-old male who presents to the emergency department today with complaints of chest pain with shortness of breath with associated dizziness. Patient was recently diagnosed with a pulmonary embolism and is on Xarelto. There was a 5 day time period in which the patient did not have medication however he has been on it as prescribed recently. Patient states he took his Xarelto this morning when his symptoms began, a few hours earlier than he should have. Patient states that after taking the Xarelto his symptoms seemed to resolve this morning. Patient does admit to being an anxious person and he believes anxiety may have played into his symptoms today. Patient denies any pain currently. (BABS HEDRICK) - Related Data Allergies/Adverse Reactions: No Known Allergies Allergy (Verified 03/18/17 02:56) Home Medications: Current Home Medications Buprenorphine HCl/Naloxone HCl [Suboxone 8 mg-2 mg Sl Film] 1 film SL DAILY 12/02 [History] Past Medical History - General Information source: Patient - Social History Smoking Status: Current Every Day Smoker Cigarette use (# per day): Yes Frequency of alcohol use: None Drug Abuse: Other - Hx of prescription drug abuse and methamphetamine abuse Lives with: Family Family History: Reviewed & Not Pertinent Patient has suicidal ideation: No Patient has homicidal ideation: No - Past Medical History Cardiac Medical History: Reports: Hx Pulmonary Embolism Psychiatric Medical History: Reports: Hx Anxiety, Hx Depression Past Surgical History: Reports: Hx Orthopedic Surgery - pelvic - Immunizations Immunizations up to date: Yes Hx Diphtheria, Pertussis, Tetanus Vaccination: Yes <BABS HEDRICK - Last Filed: 03/23/17 08:00> Review of Systems - Review of Systems Constitutional: No symptoms reported EENT: No symptoms reported Cardiovascular: See HPI, Chest pain, Dizziness Respiratory: See HPI, Short of breath Gastrointestinal: No symptoms reported Genitourinary: No symptoms reported Male Genitourinary: No symptoms reported Musculoskeletal: No symptoms reported Skin: No symptoms reported Hematologic/Lymphatic: No symptoms reported Neurological/Psychological: No symptoms reported -: Yes All other systems reviewed and negative <BABS HEDRICK - Last Filed: 03/23/17 08:00> Physical Exam - Vital signs Interpretation: Normal - General General appearance: Appears well, Alert - HEENT Head: Normocephalic, Atraumatic Eyes: Normal Pupils: PERRL - Respiratory Respiratory status: No respiratory distress Chest status: Nontender Breath sounds: Normal Chest palpation: Normal - Cardiovascular Rhythm: Regular Heart sounds: Normal auscultation Murmur: No - Abdominal Inspection: Normal Distension: No distension Bowel sounds: Normal Tenderness: Nontender Organomegaly: No organomegaly - Back Back: Normal, Nontender - Extremities General upper extremity: Normal inspection, Normal ROM, Normal strength. No: Edema General lower extremity: Normal inspection, Normal ROM, Normal strength. No: Edema - Neurological Neuro grossly intact: Yes Cognition: Normal Orientation: AAOx4 Ling Coma Scale Eye Opening: Spontaneous Ling Coma Scale Verbal: Oriented [place] Coma Scale Motor: Obeys Commands Ling Coma Scale Total: 15 Speech: Normal - Psychological Associated symptoms: Normal affect, Normal mood - Skin Skin Temperature: Warm Skin Moisture: Dry Skin Color: Normal <FLORIDALMABABS - Last Filed: 03/23/17 08:00> - Vital signs Vitals: Temp Pulse Resp BP Pulse Ox 97.8 F 77 16 138/96 H 96 03/23/17 06:17 03/23/17 06:17 03/23/17 06:17 03/23/17 06:17 03/23/17 06:17 Course - Laboratory Result Diagrams: 03/23/17 07:10 03/23/17 07:10 <BABS HEDRICK - Last Filed: 03/23/17 08:00> - Laboratory Result Diagrams: 03/23/17 07:10 03/23/17 07:10 <RAUDEL MOODY - Last Filed: 03/23/17 08:36> - Re-evaluation Re-evalutation: 03/23/17 08:35 The patient's lab work is unremarkable, specifically a d-dimer is 0.30 today. ( RAUDEL MOODY) - Vital Signs Vital signs: Temp Pulse Resp BP Pulse Ox 97.8 F 77 12 129/88 H 96 03/23/17 06:17 03/23/17 06:17 03/23/17 07:01 03/23/17 07:01 03/23/17 07:01 - Laboratory Laboratory results interpreted by me: 03/23/17 03/23/17 07:10 07:10 MCH 33.5 H BUN 29 H Discharge <BABS HEDRICK - Last Filed: 03/23/17 08:00> <RAUDEL MOODY - Last Filed: 03/23/17 08:36> - Discharge Clinical Impression: Chest pain Qualifiers: Chest pain type: unspecified Qualified Code(s): R07.9 - Chest pain, unspecified Condition: Stable Additional Instructions: Chest Pain of Unclear Cause The exact cause of your chest pain isn't clear. Fortunately, there is no evidence of a dangerous medical condition. Further testing may be required to find the source of the pain. Most often, we find that this pain is coming from the chest wall -- the muscles or rib joints in the chest. But chest pain can come from the lung and lung lining, the esophagus, the heart valves or heart lining, and even the stomach or gallbladder. Rest. Eat lightly until the pain is gone. We may prescribe medicine for pain and inflammation. You should call the physician immediately if the pain radiates to the shoulder, jaw or arms; if you start to run a fever or develop a cough; or if you develop shortness of breath, or other new or alarming symptoms. Your lab work does not suggest recurrent blood clots. There is no clear explanation for your chest discomfort. Some of your symptoms are probably related to anxiety about the chest discomfort. Continue taking your Xarelto as prescribed. Be sure to drink plenty of fluids and get plenty of rest for the next 1-2 days. [facility]. RETURN TO THE EMERGENCY ROOM IF ANY NEW OR WORSENING SYMPTOMS. Scribe Attestation: 03/23/17 08:35 I personally performed the services described in the documentation, reviewed and edited the documentation which was dictated to the scribe in my presence, and it accurately records my words and actions. (RAUDEL MOODY) Scribe Documentation - Scribe Written by Scribcarole:: Talia Mckeon, 03/23/2017 [id number] acting as scribe for :: Morena <BABS HEDRICK - Last Filed: 03/23/17 08:00>
[2017-03-23 07:37] LABS: ALANINE AMINOTRANSFERASE 36 U/L (21-72); ALBUMIN 4.3 g/dL (3.5-5.0); ALKALINE PHOSPHATASE 73 U/L (38-126); ANION GAP 9 (5-19); ASPARTATE AMINO TRANSFERASE 27 U/L (17-59); BILIRUBIN,DIRECT 0.3 mg/dL (0.0-0.4); BILIRUBIN,TOTAL 0.5 mg/dL (0.2-1.3); BLOOD UREA NITROGEN 29 mg/dL (7-20); CALCIUM 9.7 mg/dL (8.4-10.2); CARBON DIOXIDE 28 mmol/L (22-30); CHLORIDE 105 mmol/L (98-107); CREATINE KINASE 122 U/L (55-170); CREATININE RESULT 1.01 mg/dL (0.52-1.25); GLUCOSE 104 mg/dL (75-110); POTASSIUM 4.4 mmol/L (3.6-5.0); SODIUM 141.5 mmol/L (137-145); TOTAL PROTEIN 6.9 g/dL (6.3-8.2)
[2017-03-23 08:44] VITALS: BP 122/85
--- NOTE | 2017-03-23 10:59 | EKG REPORT ---
SEVERITY:- NORMAL ECG - SINUS RHYTHM : Confirmed by: Hortensia Lopes MD 23-Mar-2017 10:58:09
== END 2017-03-23 08:48 | disposition home or self-care (01) ==
LOC: ER 06:12
DX: R07.9 Chest pain, unspecified (principal); R06.02 Shortness of breath; R42 Dizziness and giddiness; Z79.01 Long term (current) use of anticoagulants; F17.210 Nicotine dependence, cigarettes, uncomplicated
CPT/HCPCS: 36415; 80053; 81001; 82550; 84484; 85025; 85379; 93005; 93010; 99285

== ENCOUNTER 2017-04-28 02:43 | Emergency (ER) | payer SELFPAY ==
[2017-04-28] MEDS ORDERED: NORMAL SALINE 1000 ML 1,000 ML IV ONE (03:07)
[2017-04-28] MEDS ORDERED: LORAZEPAM INJ 2 MG/1 ML VIAL IV ONE (03:08)
--- NOTE | 2017-04-28 03:09 | ER Document Report ---
ED General - General Chief Complaint: Shortness Of Breath Stated Complaint: DIFFICULTY BREATHING Time Seen by Provider: 04/28/17 03:01 Notes: Patient is a 37-year-old male presents with complaint of difficulty breathing and rapid heart rate. He says that he did drink alcohol and also smokes marijuana. He started feel like his heart was racing and felt unwell and therefore took Valium. He still felt unwell and therefore came to ER. On February 13 he was diagnosed with bilateral PEs. He did go a short time 2 weeks ago without having his Xarelto but was able to get it filled and has been taking it every day for the last week. He denies recent fevers. He denies any IV drug abuse since the PEs occurred. He denies any amphetamine use. No other complaints at this time. TRAVEL OUTSIDE OF THE [place] IN LAST 30 DAYS: No - Related Data Allergies/Adverse Reactions: No Known Allergies Allergy (Verified 04/21/17 17:23) Past Medical History - Social History Smoking Status: Former Smoker Frequency of alcohol use: Occasional Drug Abuse: Marijuana Family History: Reviewed & Not Pertinent Patient has suicidal ideation: No Patient has homicidal ideation: No - Past Medical History Cardiac Medical History: Reports: Hx Pulmonary Embolism Renal/ Medical History: Denies: Hx Peritoneal Dialysis Psychiatric Medical History: Reports: Hx Anxiety, Hx Depression Past Surgical History: Reports: Hx Orthopedic Surgery - pelvic - Immunizations Immunizations up to date: Yes Hx Diphtheria, Pertussis, Tetanus Vaccination: Yes Review of Systems - Review of Systems Notes: My Normal Review Basic REVIEW OF SYSTEMS: CONSTITUTIONAL : Denies fever, chills, or sweats. Denies recent illness. EENT: Denies eye, ear, throat, or mouth pain or symptoms. Denies nasal or sinus congestion. CARDIOVASCULAR: Mild chest pain. Some shortness of breath. RESPIRATORY: Shortness of breath. GASTROINTESTINAL: Denies abdominal pain. Denies nausea, vomiting, or diarrhea. Denies constipation. Last BM: : MUSCULOSKELETAL: Denies neck or back pain or joint pain or swelling. SKIN: Denies rash or skin lesions. HEMATOLOGIC : On Xarelto. NEUROLOGICAL: Denies altered mental status or loss of consciousness. Denies headache. Denies weakness or paralysis or loss of use of either side. Denies problems with gait or speech. Denies sensory or motor loss. PSYCHIATRIC: History of anxiety. ALL OTHER SYSTEMS REVIEWED AND NEGATIVE. Physical Exam - Vital signs Vitals: Temp Pulse Resp BP Pulse Ox 98.3 F 144 H 24 H 147/92 H 98 04/28/17 02:47 04/28/17 02:47 04/28/17 02:47 04/28/17 02:47 04/28/17 02:47 - Notes Notes: General Appearance: Well nourished, alert, cooperative, no acute distress, no obvious discomfort. Anxious appearing. Vitals: reviewed, See vital signs table. Head: no swelling or tenderness to the head Eyes: PERRL, EOMI, Conjuctiva clear Mouth: No decreasd moisture Neck: Supple, no neck tenderness, No thyromegaly Lungs: No wheezing, No rales, No rhonci, No accessory muscle use, good air exchange bilaterally. Heart: tachycardiac rate, Regular rythm, No murmur, no rub Abdomen: Normal BS, soft, No rigidity, No abdominal tenderness, No guarding, no rebound, no abdominal masses, no organomegaly Extremities: strength 5/5 in all extremities, good pulses in all extremities, no swelling or tenderness in the extremities, no edema. Skin: warm, dry, appropriate color, no rash Neuro: speech clear, oriented x 3, normal affect, responds appropriately to questions. Course - Re-evaluation Re-evalutation: 04/28/17 04:[address] scan shows large improvement of his previous clot burden from his PEs. When I when the room patient is sleeping in his heart rate is in the 80s. When I wake up and tell him he is little bit less anxious but still starts work himself up and his heart rate will go into the 1 teens. I suspect that the symptoms are related to his alcohol, drug use, and anxiety today being that his CT scan is showing large amount of improvement. I will the patient wrestled the longer and then most likely will eventually discharged home. She has no distress. Oxygen saturation is 99% on room air. No tachypnea. 04/28/17 05:49 She continues to look and feel improved. He again was sleeping while in the room. I will come up his heart rate was in the 90s. We got up to walk around his heart rate was right around 100. He has no increased work of breathing. His lung hernandez are clear. CT scan shows improvement of his clot burden. I suspect that his episode today probably was related to anxiety which most likely was exacerbated by the alcohol and marijuana. I encouraged him to stay away from all alcohol and to not do any drugs whatsoever. I encouraged him to continue taking Xarelto. Encouraged him to return to ER if he has worsening of his symptoms or feels unwell. Patient agrees with plan will be discharged home. Dictation of this chart was performed using voice recognition software; therefore, there may be some unintended grammatical errors. - Vital Signs Vital signs: Temp Pulse Resp BP Pulse Ox 98.3 F 144 H 17 103/67 91 L 04/28/17 02:47 04/28/17 02:47 04/28/17 05:01 04/28/17 05:00 04/28/17 05:01 - Laboratory Result Diagrams: 04/28/17 03:00 04/28/17 03:00 Laboratory results interpreted by me: 04/28/17 04/28/17 03:00 03:00 WBC 13.5 H RBC 4.07 L MCV 98 H Seg Neutrophils % 39.1 L Lymphocytes % 47.6 H Absolute Lymphocytes 6.4 H Absolute Eosinophils 0.8 H BUN 23 H Glucose 146 H - EKG Interpretation by Me Additional EKG results interpreted by me: 04/28/17 03:08 EKG is reviewed and interpreted by me. EKG shows sinus tachycardia with a rate of [address] segment elevation or depression. ID interval, QRS duration, QTc intervals are within normal range. No old EKG available for comparison at this time. Discharge - Discharge Clinical Impression: Tachycardia Dyspnea Qualifiers: Dyspnea type: unspecified Qualified Code(s): R06.00 - Dyspnea, unspecified Condition: Good Disposition: HOME, SELF-CARE Additional Instructions: Please avoid alcohol and any type of drugs. Please continue take her Xarelto as prescribed. Please follow-up with your doctor this week for reevaluation. Please return to ER immediately if you have worsening difficulty breathing, chest pain, fevers, or feel unwell. Forms: Return to Work
[2017-04-28 03:20] LABS: ABSOLUTE BASOPHILS # (AUTO) 0.1 10^3/uL (0.0-0.2); ABSOLUTE EOSINOPHILS # (AUTO) 0.8 10^3/uL (0.0-0.6); ABSOLUTE LYMPHOCYTES (AUTO) 6.4 10^3/uL (0.5-4.7); ABSOLUTE MONOCYTES (AUTO) 0.9 10^3/uL (0.1-1.4); ABSOLUTE NEUT (AUTO) 5.3 10^3/uL (1.7-8.2); EOSINOPHILS % (AUTO) 5.6 % (0-6); HEMOGLOBIN 13.5 g/dL (13.5-17.0); HGB HCT DIFFERENCE 0.5; LYMPHOCYTES % (AUTO) 47.6 % (13-45); MEAN CORPUSCULAR HEMOGLOBIN 33.2 pg (27.0-33.4); MEAN CORPUSCULAR HGB CONC 33.8 g/dL (32.0-36.0); MEAN CORPUSCULAR VOLUME 98 fl (80-97); MONOCYTES % (AUTO) 6.7 % (3-13); RED BLOOD COUNT 4.07 10^6/uL (4.35-5.55); RED CELL DISTRIBUTION WIDTH 13.1 % (11.5-14.0); SEGMENTED NEUTROPHILS % (AUTO) 39.1 % (42-78); WHITE BLOOD COUNT 13.5 10^3/uL (4.0-10.5)
[2017-04-28 03:32] LABS: ANION GAP 15 (5-19); BLOOD UREA NITROGEN 23 mg/dL (7-20); CARBON DIOXIDE 24 mmol/L (22-30); CHLORIDE 104 mmol/L (98-107); CREATININE RESULT 1.22 mg/dL (0.52-1.25); GLUCOSE 146 mg/dL (75-110); POTASSIUM 3.6 mmol/L (3.6-5.0); SODIUM 142.7 mmol/L (137-145)
--- NOTE | 2017-04-28 04:13 | RADIOLOGY REPORT (SQ) ---
EXAM DESCRIPTION: CTA CHEST COMPLETED DATE/TIME: 04/28/2017 3:45 am REASON FOR STUDY: tachycarida, difficulty breathing COMPARISON: None. TECHNIQUE: CT scan of the chest performed using helical scanning technique with dynamic intravenous contrast injection. Images reviewed with lung, soft tissue and bone windows. Reconstructed coronal and sagittal MPR images reviewed. Additional 3 dimensional post-processing performed to develop Maximal Intensity Projection images (CT P). All images stored on PACS. All CT scanners at this facility use dose modulation, iterative reconstruction, and/or weight based d osing when appropriate to reduce radiation dose to as low as reasonably achievable (ALARA). [facility]: Dose Right [facility]: CareDose [facility]: Dose Right [facility]: Teradose 4D [facility]: [employer]Hub CONTRAST TYPE AND DOSE: contrast/concentration: Isovue 370.00 mg/ml; Total Contrast Delivered: 75.0 ml; Total Saline Delivered: 110.1 ml Contrast bolus optimized for the pulmonary arteries. Not diagnostic for the aorta. RENAL FUNCTION: None required. The patient is less than 50 years old. RADIATION DOSE: Up-to-date CT equipment and radiation dose reduction techniques were employed. CTDIv ol: 16.5 - 20.7 mGy. DLP: 814 mGy-cm. . LIMITATIONS: None. FINDINGS: LUNGS AND PLEURA: No masses, infiltrates, pneumothorax. No pleural effusions, calcificati ons. AORTA AND GREAT VESSELS: No aneurysm. Contrast bolus not optimized for the aorta. HEART: No pericardial effusion. No significant coronary artery calcifications. PULMONARY ARTERIES: No gross evidence of pulmonary embolus ; inadequate pulmonary arterial enhancemen t and streak artifact with enhancement measuring 120-140 Hounsfield units. No evidence of right vent ricular strain. HILAR AND MEDIASTINAL STRUCTURES: No identified masses or abnormal nodes. Mild nonspecific dilation of the distal esophagus. HARDWARE: None in the chest. UPPER ABDOMEN: 6.7 cm likely benign cyst of the right kidney partially imaged. THYROID AND OTHER SOFT TISSUES: No masses. No adenopathy. BONES: No acute or significant finding. 3D MIPS: Confirm above findings. OTHER: No other significant finding. IMPRESSION: 1. No acute cardiopulmonary findings. 2. No gross evidence of pulmonary embolus ; the re is suboptimal pulmonary arterial enhancement. Consider repeat or alternative/surveillance investi gation as clinically warranted. COMMENT: Quality ID # [id number]: Final reports with documentation of one or more dose reduction techniques (e.g., Automated exposure control, adjustment of the mA and/or kV according to patient size, use of iterative reconstruction technique) TECHNICAL DOCUMENTATION: JOB ID: [id number] [employer]- All Rights Reserved
[2017-04-28 04:30] LABS: URINE BARBITURATES SCREEN NEGATIVE; URINE METHADONE SCREEN NEGATIVE; URINE OPIATES LOW NEGATIVE; URINE PHENCYCLIDINE SCREEN NEGATIVE
[2017-04-28 06:01] VITALS: BP 107/66
--- NOTE | 2017-04-28 08:40 | EKG REPORT ---
SEVERITY:- OTHERWISE NORMAL ECG - SUPRAVENTRICULAR TACHYCARDIA LIKELY SINUS TACHYCARDIA : Confirmed by: Peewee Charles MD 28-Apr-2017 08:40:02
== END 2017-04-28 06:02 | disposition home or self-care (01) ==
LOC: ER 02:43
DX: I26.99 Other pulmonary embolism without acute cor pulmonale (principal); F41.9 Anxiety disorder, unspecified; R00.0 Tachycardia, unspecified; R06.02 Shortness of breath; R07.9 Chest pain, unspecified; F12.10 Cannabis abuse, uncomplicated; Z87.891 Personal history of nicotine dependence
CPT/HCPCS: 93005; 99285; 96361; 96374; 36415; 85025; 80048; 84484; 80307; 71275; 93010; J2060; J7030

== ENCOUNTER 2017-05-14 19:14 | Emergency (ER) | payer SELFPAY | END 2017-05-14 19:44 | disposition left against medical advice (07) | LOC: ER 19:14 | DX: Z53.9 Procedure and treatment not carried out, unspecified reason (principal); R06.02 Shortness of breath ==